=== PATIENT | male | born 2000 | race Caucasian/White ===

== ENCOUNTER 2019-05-23 23:09 | Emergency (ER) | payer OTHER ==
[~2019-05-23] VITALS: Ht 177.8 cm; Wt 63.6 kg
[2019-05-24 00:12] LABS: BASOPHILS # (AUTO) 0.01 x10^3/uL (0-0.3); BASOPHILS % (AUTO) 0 % (0-1); EOSINOPHILS # (AUTO) 0.11 x10^3/uL (0-0.8); EOSINOPHILS % (AUTO) 2 % (1-7); LYMPHOCYTES # (AUTO) 1.65 x10^3/uL (1-6.1); LYMPHOCYTES % (AUTO) 23 % (22-44); MD NO; MEAN CORPUSCULAR HEMOGLOBIN 29.8 pg (27.5-34.5); MEAN CORPUSCULAR HGB CONC 32.9 g/dL (33.2-36.2); MEAN CORPUSCULAR VOLUME 90.5 fL (81-97); MEAN PLATELET VOLUME 8.4 fL (7.4-10.4); MONOCYTES # (AUTO) 0.34 x10^3/uL (0-1.4); MONOCYTES % (AUTO) 5 % (2-9); NEUTROPHILS # (AUTO) 4.97 x10^3/uL (1.8-8.0); NEUTROPHILS % (AUTO) 70 % (42-75); PLATELET COUNT 232 x10^3/uL (130-400); RED BLOOD COUNT 5.42 x10^6/uL (4.38-5.82); RED CELL DISTRIBUTION WIDTH 12.5 % (9.4-14.8)
[2019-05-24 00:23] LABS: ALANINE AMINOTRANSFERASE 23 U/L (12-78); ALBUMIN 3.9 g/dL (3.4-5.0); ANION GAP 5 mmol/L (5-15); CALCIUM 8.5 mg/dL (8.5-10.1); CHLORIDE 108 mmol/L (98-107); CREATININE 0.84 mg/dL (0.7-1.3)
[2019-05-24 00:25] LABS: ALKALINE PHOSPHATASE 79 U/L (45-117); BILIRUBIN,TOTAL 0.8 mg/dL (0.2-1.0); TOTAL PROTEIN 7.2 g/dL (6.4-8.2)
--- NOTE | 2019-05-24 01:09 | NUR ---
PT PLACED ON MONITORING, CALL LIGHT WITHIN REACH. PT UNABLE TO PROVIDE SIGNIFICANT VOLUME OF URINE FOR UA.
[2019-05-24 01:42] LABS: CULTURE INDICATED? NO; MICROSCOPIC NOT IND
[2019-05-24 02:18] VITALS: BP 121/79
== END 2019-05-24 02:39 | disposition home or self-care (01) ==
LOC: ED 05-24 01:53
DX: R10.30 Lower abdominal pain, unspecified (principal); R11.0 Nausea
CPT/HCPCS: 36415; 80053; 81003; 83690; 85025; 99283